=== PATIENT | female | born 1955 | race Caucasian/White ===

== ENCOUNTER 2016-12-15 14:51 | Emergency (ER) | payer MEDICAID ==
[~2016-12-15] VITALS: Ht 177.8 cm; Wt 114.8 kg
[2016-12-15 14:57] VITALS: BP 156/68
[2016-12-15] MEDS ORDERED: FLONASE ALLERG9.9 ML NS (15:22)
[2016-12-15] MEDS ORDERED: BENADRYL25 MG ORAL (15:22)
[2016-12-15] MEDS ORDERED: SALINE NASAL SP45 ML NASAL (15:22)
[2016-12-15] MEDS ORDERED: ARTIFICIAL TEAR15 ML BOTH EYES (15:22)
[2016-12-15 15:25] VITALS: BP 156/68
--- NOTE | 2016-12-15 21:02 | Emergency Room Report ---
History of Present Illness General Chief Complaint: Upper Respiratory Illness Source: Patient Present Illness [facility] The patient is a 61-year-old female presenting for nasal congestion, watery discharge from eyes, and sneezing for the past few days. She states that there has been construction around her house which is when the symptoms started. She denies any known allergies. She denies any pain. She denies any other symptoms including N, V, F, chills, SOB, CP Allergies: Coded Allergies: ACETAMINOPHEN (Verified Allergy, Unknown, 12/15/16) ASENAPINE (Verified Allergy, Unknown, 12/15/16) HYDROCODONE (Verified Allergy, Unknown, 12/15/16) TRAMADOL (Verified Allergy, Unknown, 12/15/16) Patient History Past Medical History: see triage record Pertinent Family History: none Last Menstrual Period: n/a Reviewed Nursing Documentation: PMH: Agreed, PSxH: Agreed Nursing Documentation-PMH Past Medical History: No History, Except For Hx Cardiac Problems: Yes - afib Hx Hypertension: Yes Review of Systems All Other Systems: negative except mentioned in HPI Physical Exam Vital Signs Date Time Temp Pulse Resp B/P (MAP) Pulse Ox O2 Delivery O2 Flow Rate FiO2 12/15/16 14:57 98.2 51 16 156/68 95 Room Air Sp02 EP Interpretation: reviewed, normal General Appearance: no apparent distress, alert, GCS 15, non-toxic Head: normocephalic, atraumatic Eyes: bilateral eye normal inspection, bilateral eye PERRL, bilateral eye EOMI , bilateral eye other - watery DC ENT: hearing grossly normal, normal pharynx, no angioedema, normal voice, nasal congestion Neck: full range of motion, supple/symm/no masses Respiratory: chest non-tender, lungs clear, normal breath sounds, speaking full sentences Cardiovascular #1: regular rate, rhythm, no edema Musculoskeletal: back normal, gait/station normal, normal range of motion, non- tender Neurologic: alert, oriented x3, responsive, motor strength/tone normal, sensory intact, speech normal Psychiatric: judgement/insight normal, memory normal, mood/affect normal, no suicidal/homicidal ideation Skin: normal color, no rash, warm/dry, well hydrated Lymphatic: no adenopathy Medical Decision Making PA Attestation Dr. Bourne is my supervising physician. Patient management was discussed with my supervising physician Diagnostic Impression: Primary Impression: Conjunctivitis Qualified Codes: H10.9 - Unspecified conjunctivitis Additional Impression: Rhinitis, allergic Qualified Codes: J30.9 - Allergic rhinitis, unspecified ER Course The patient is a 61-year-old female presenting for nasal congestion, watery discharge from eyes, and sneezing for the past few days Differential diagnosis include but not limited to sinusitis, rhinitis, pharyngitis, AOM, bronchitis, PNA PE: Afebrile. NAD HEENT: There is bilateral watery discharge from the eyes. EOMI. PERRL There is nasal discharge with congestion. Oropharynx is unremarkable. No tonsillar edema. No lymphadenopathy The patient is discharged home and will be treated with antihistamines, flonase Last Vital Signs Date Time Temp Pulse Resp B/P (MAP) Pulse Ox O2 Delivery O2 Flow Rate FiO2 12/15/16 15:25 98.2 57 17 156/68 98 Room Air Status: improved Disposition: HOME, SELF-CARE Condition: Improved Scripts Dextran 70/Hypromellose (ARTIFICIAL TEARS EYE DROPS*) 15 Ml Drops 1 DROP BOTH EYES PRN, #15 ML 0 Refills Prov: TERZIAN,MARÍA P.A. 12/15/16 Diphenhydramine Hcl* (BENADRYL*) 25 Mg Capsule 25 MG ORAL Q6H Y for Itching, #30 CAP Prov: TERZIAN,MARÍA P.A. 12/15/16 Sodium Chloride (Saline Nasal [place]) 30 Ml [place] 1 SPRAY NASAL THREE TIMES A DAY, #30 ML Prov: TERZIAN,MARÍA P.A. 12/15/16 Fluticasone Propionate (Flonase Allergy Relief) 9.9 Ml [place].susp 1 SPRAYS NS DAILY, #10 ML Prov: TERZIAN,MARÍA P.A. 12/15/16 Referrals: NON PHYSICIAN (PCP) Patient Instructions: Allergic Rhinitis Additional Instructions: I discussed my findings with the patient. All questions and concerns have been answered. Treatment and medication compliance have been addressed. I advised the patient that they need to follow up with PMD in 3-5 days. Return to ED if pain remains or worsens, cough worsens or remains, you notice blood in your sputum, you notice wheezing, you experience a fever, or if needed for any reason. Patient verbalized understanding of discharge instructions. TERZIAN,MARÍA P.A. Dec 15, 2016 21:02
== END 2016-12-15 15:25 | disposition home or self-care (01) ==
LOC: EMR 15:20
DX: J30.9 Allergic rhinitis, unspecified (principal); H10.9 Unspecified conjunctivitis; I48.91 Unspecified atrial fibrillation; I10 Essential (primary) hypertension; Z88.6 Allergy status to analgesic agent; Z88.8 Allergy status to other drugs, medicaments and biological substances
CPT/HCPCS: 99283